=== PATIENT | male | born 1970 | race Caucasian/White ===

== ENCOUNTER 2021-08-18 13:04 | Emergency (ER) | payer SELFPAY ==
[2021-08-18] MEDS: Adenosine 12 MG/4 ML SDV IVPUSH ONE (13:30)
[2021-08-18] MEDS: Sodium Chloride 0.9% 1,000 ML IV ONE (13:30)
[2021-08-18 13:59] LABS: TROPONIN I HIGH SENSITIVITY 8.2 pg/ml (<=60.4)
== END 2021-08-18 14:25 | disposition home or self-care (01) ==
LOC: LB.ED 13:04
DX: I47.1 Supraventricular tachycardia (principal)
CPT/HCPCS: 36415; 80053; 84484; 85025; 93005; 93010; 96374; 99282; 99285-25; J0153; J7030

== ENCOUNTER 2023-11-24 10:02 | Emergency (ER) | payer SELFPAY ==
[2023-11-24 10:50] LABS: BASOPHILS ABSOLUTE AUTO 0.03 K/uL (0.02-0.10); BASOPHILS PERCENT AUTO 0.5 % (0.0-0.5); EOSINOPHILS ABSOLUTE AUTO 0.13 K/uL (0.04-0.40); EOSINOPHILS PERCENT AUTO 2.4 % (1.0-5.0); HEMATOCRIT 44.6 % (40.0-54.0); HEMOGLOBIN 15.3 g/dL (13.0-18.0); LYMPHOCYTES ABSOLUTE AUTO 0.85 K/uL (1.50-4.00); LYMPHOCYTES PERCENT AUTO 15.6 % (20.0-40.0); MEAN CORPUSCULAR HEMOGLOBIN 31.8 pg (27.0-32.0); MEAN CORPUSCULAR HGB CONC 34.3 g/dL (31.0-35.0); MEAN CORPUSCULAR VOLUME 93 fL (76-96); MEAN PLATELET VOLUME 10.6 fL (6.0-10.0); MONOCYTES ABSOLUTE AUTO 0.78 K/uL (0.20-0.80); MONOCYTES PERCENT AUTO 14.3 % (3.0-10.0); NEUTROPHILS ABSOLUTE AUTO 3.67 K/uL (2.00-7.50); NEUTROPHILS PERCENT AUTO 67.2 % (45.0-70.0); PLATELET COUNT,PLT 175 K/uL (150-400); RED BLOOD CELL COUNT 4.81 M/uL (4.50-6.50); WHITE BLOOD CELL COUNT,WBC 5.5 K/uL (4.0-11.0)
[2023-11-24 11:14] LABS: A/G RATIO 0.9 (0.8-2.0); ALANINE AMINOTRANSFERASE,ALT 76 U/L (12-78); ALBUMIN 3.4 g/dL (3.4-5.0); ALKALINE PHOSPHATASE 125 U/L (46-116); ANION GAP 9.9 mmol/L (5.0-15.0); ASPARTATE AMNIOTRANSFERASE,AST 45 U/L (15-37); BILIRUBIN TOTAL 0.6 mg/dL (0.0-1.0); BLOOD UREA NITROGEN,BUN 11 mg/dL (8-26); CALCIUM 8.5 mg/dL (8.5-10.1); CARBON DIOXIDE,CO2 29.4 mmol/L (21.0-32.0); CHLORIDE,CL 110 mmol/L (98-107); ESTIMATED GFR 80 mL/min (>60); GLUCOSE RANDOM 105 mg/dL (74-100); POTASSIUM,K 4.3 mmol/L (3.5-5.1); SODIUM,NA 145 mmol/L (136-145)
[2023-11-24 11:17] LABS: TROPONIN I HIGH SENSITIVITY < 4.0 pg/ml (<=60.4)
== END 2023-11-24 11:49 | disposition home or self-care (01) ==
LOC: LB.ED 10:02
DX: R07.9 Chest pain, unspecified (principal); I10 Essential (primary) hypertension; F17.210 Nicotine dependence, cigarettes, uncomplicated; Z79.82 Long term (current) use of aspirin; Z79.899 Other long term (current) drug therapy
CPT/HCPCS: 36415; 71045; 80053; 84484; 85025; 93005; 99285